=== PATIENT | male | born 1995 | race African-American/Black ===

== ENCOUNTER 2022-09-25 13:09 | Emergency (ER) | payer SELFPAY ==
[~2022-09-25] VITALS: Ht 182.9 cm; Wt 100.0 kg
[2022-09-25 13:57] VITALS: BP 134/77
[2022-09-25 14:49] LABS: BG BASE EXCESS 2.5 mmol/L (-2.0-2.0); BG CARBOXYHEMOGLOBIN 1.1 % (0.5-1.5); BG DEOXYHEMOGLOBIN 4.1 % (0.0-5.0); BG FRACTION INSPIRED OXYGEN 21; BG HCO3 ACT 26.9 mmol/L (22.0-26.0); BG METHEMOGLOBIN 0.3 % (0.0-1.5); BG OXYGEN SATURATION 95.8 % (92.0-98.5); BG OXYHEMOGLOBIN 94.5 % (94.0-97.0); BG PCO2 41.1 mmHg (35.0-45.0); BG PH 7.434 (7.350-7.450); BG PO2 75.1 mmHg (75.0-100.0); BG SAMPLE SITE LEFT RADIAL; BG TOTAL HEMOGLOBIN 15.3 g/dL (12.0-18.0); BG VENT MODE ROOM AIR
[2022-09-25 15:33] LABS: BASOPHILS % 0.5 % (0.0-2.0); EOSINOPHILS % 1.8 % (0.0-5.0); HEMATOCRIT. 46.1 % (42.0-52.0); HEMOGLOBIN. 14.5 g/dL (14.0-18.0); LYMPHOCYTES % 40.5 % (20.0-50.0); MEAN CORPUSCULAR VOLUME 69.6 fL (80.0-94.0); MONOCYTES % 6.5 % (2.0-8.0); NEUTROPHILS % 50.7 % (40.0-76.0); PLATELET 268 x1000/uL (130-400); RED BLOOD CELL COUNT 6.61 mill/uL (4.7-6.1); RED CELL DISTRIBUTION WIDTH 14.8 % (11.6-14.6)
[2022-09-25 15:35] LABS: CHLORIDE 91 mEq/L (98-107)
[2022-09-25 15:41] LABS: BETA HYDROXYBUTYRATE 1.1 mMol/L (0.0-0.3)
[2022-09-25] MEDS ORDERED: METF-414 MT (17:24)
[2022-09-25] MEDS ORDERED: INSULIN REGULAR (HUMULIN R) 300UNITS/3ML VIAL SUBCUT ONE (17:30)
[2022-09-25] MEDS ORDERED: METFORMIN HCL 500MG TABLET PO ONE (17:30)
[2022-09-25 17:52] LABS: CLARITY URINE CLOUDY (CLEAR); COLOR URINE YELLOW (YELLOW); KETONES URINE 2+ (NEGATIVE); LEUKOCYTE ESTERASE URINE 2+ (NEGATIVE); NITRITE URINE NEGATIVE (NEGATIVE); OCCULT BLOOD URINE 1+ (NEGATIVE); PROTEIN URINE 1+ (NEGATIVE); SPECIFIC GRAVITY URINE 1.044 (1.005-1.030); UROBILINOGEN URINE 0.2 E.U./dL (0.2-1.0)
[2022-09-25 18:08] LABS: PLATELET ESTIMATE NORMAL
== END 2022-09-25 17:57 | disposition home or self-care (01) ==
LOC: ER 13:09
DX: E11.65 Type 2 diabetes mellitus with hyperglycemia (principal); R53.1 Weakness; R42 Dizziness and giddiness
CPT/HCPCS: 36415; 36600; 71045; 80053; 81003; 82010; 82375; 82805; 82962; 85025; 87086; 96372; 99284; J1815

== ENCOUNTER 2025-04-10 21:58 | Emergency (ER) | payer BC ==
[~2025-04-10] VITALS: Ht 180.3 cm; Wt 100.0 kg
[~2025-04-10 21:58] MED LIST: METF-414 MT; METF-416 MT
[2025-04-10 21:59] VITALS: O2SAT 99
[2025-04-10 22:32] VITALS: TEMP 36.9
[2025-04-10] MEDS ORDERED: PENI500T MT (23:48)
[2025-04-10] MEDS ORDERED: IBUP-2029 MT (23:48)
[2025-04-10 23:59] VITALS: BP 148/86; PULSE 91; RESP 18
[2025-04-10] MEDS: KETOROLAC 30MG/ML VIAL IM ONE (23:59)
== END 2025-04-11 | disposition home or self-care (01) ==
LOC: ER 21:58
DX: J02.8 Acute pharyngitis due to other specified organisms (principal); B96.89 Other specified bacterial agents as the cause of diseases classified elsewhere; E11.9 Type 2 diabetes mellitus without complications; Z79.84 Long term (current) use of oral hypoglycemic drugs
CPT/HCPCS: 99283; 96372; J1885

== ENCOUNTER 2025-05-16 19:53 | Emergency (ER) | payer BC ==
[~2025-05-16] VITALS: Ht 180.3 cm; Wt 99.2 kg
[~2025-05-16 19:53] MED LIST changes: +IBUP-2029 MT; +PENI500T MT
[2025-05-16 20:38] VITALS: TEMP 36.8; O2SAT 98
[2025-05-16 21:01] LABS: CLARITY URINE CLEAR (CLEAR); COLOR URINE YELLOW (YELLOW); GLUCOSE URINE NEGATIVE (NEGATIVE); KETONES URINE 1+ (NEGATIVE); LEUKOCYTE ESTERASE URINE NEGATIVE (NEGATIVE); NITRITE URINE NEGATIVE (NEGATIVE); OCCULT BLOOD URINE NEGATIVE (NEGATIVE); PH URINE 5.5 (4.5-8.0); PROTEIN URINE NEGATIVE (NEGATIVE); SPECIFIC GRAVITY URINE 1.036 (1.005-1.030); UROBILINOGEN URINE 0.2 E.U./dL (0.2-1.0)
[2025-05-16 21:15] LABS: BASOPHILS % 0.5 % (0.0-2.0); EOSINOPHILS % 1.3 % (0.0-5.0); HEMATOCRIT. 38.8 % (42.0-52.0); HEMOGLOBIN. 12.4 g/dL (14.0-18.0); LYMPHOCYTES % 47.6 % (20.0-50.0); MEAN PLATELET VOLUME 8.3 fl (7.4-10.4); MONOCYTES % 6.4 % (2.0-8.0); NEUTROPHILS % 44.2 % (40.0-76.0); PLATELET 247 x1000/uL (130-400); RED BLOOD CELL COUNT 5.76 mill/uL (4.7-6.1); RED CELL DISTRIBUTION WIDTH 15.5 % (11.6-14.6)
[2025-05-16 21:16] LABS: ADD RBC MORPHOLOGY YES
[2025-05-16 21:27] LABS: CREATININE 1.1 mg/dL (0.6-1.3); UREA NITROGEN BLOOD 13 mg/dL (9-23)
[2025-05-16 21:31] LABS: PLATELET ESTIMATE NORMAL
[2025-05-16 22:51] VITALS: BP 113/83; PULSE 70; RESP 18; O2SAT 100
== END 2025-05-16 22:53 | disposition home or self-care (01) ==
LOC: ER 19:53
DX: E11.649 Type 2 diabetes mellitus with hypoglycemia without coma (principal); R53.1 Weakness; Z79.84 Long term (current) use of oral hypoglycemic drugs
CPT/HCPCS: 36415; 71045; 80048; 81003; 82962; 85025; 99284

== ENCOUNTER 2025-07-21 19:53 | Emergency (ER) | payer BC ==
[~2025-07-21] VITALS: Ht 180.3 cm; Wt 55.0 kg
[~2025-07-21 19:53] MED LIST changes: +IBUP-1455 MT; -IBUP-2029 MT
[2025-07-21 20:38] VITALS: O2SAT 100
[2025-07-21] MEDS: CEFTRIAXONE SODIUM 500MG VIAL IM ONE (20:55)
[2025-07-21] MEDS: DOXYCYCLINE HYCLATE 100MG CAPSULE PO ONE (20:56)
[2025-07-21 21:45] VITALS: BP 140/84; PULSE 98; RESP 16; TEMP 36.9; O2SAT 96
[2025-07-21 22:08] LABS: CLARITY URINE CLEAR (CLEAR); COLOR URINE YELLOW (YELLOW); GLUCOSE URINE 3+ (NEGATIVE); KETONES URINE NEGATIVE (NEGATIVE); LEUKOCYTE ESTERASE URINE NEGATIVE (NEGATIVE); NITRITE URINE NEGATIVE (NEGATIVE); OCCULT BLOOD URINE NEGATIVE (NEGATIVE); PH URINE 6.0 (4.5-8.0); PROTEIN URINE NEGATIVE (NEGATIVE); SPECIFIC GRAVITY URINE 1.032 (1.005-1.030); UROBILINOGEN URINE 1.0 E.U./dL (0.2-1.0)
[2025-07-21 22:11] LABS: RBC URINE NONE SEEN /hpf (0-2); WBC URINE 0-2 /hpf (0-2)
[2025-07-21 22:12] LABS: BACTERIA URINE TRACE; SQUAMOUS EPITHELIAL CELL URINE FEW /lpf (RARE/1+)
[2025-07-24 04:12] LABS: CHLAMYDIA TRACHOMATIS NAA Positive (Negative); NEISSERIA GONORRHOEAE NAA Negative (Negative)
[2025-07-24 04:12] LABS: HSV TYPE 2 SPECIFIC AB IGG Non Reactive (Non Reactive)
== END 2025-07-21 21:51 | disposition home or self-care (01) ==
LOC: ER 19:53
DX: A64 Unspecified sexually transmitted disease (principal); E11.9 Type 2 diabetes mellitus without complications; Z79.84 Long term (current) use of oral hypoglycemic drugs
CPT/HCPCS: 99283; 86592; 86695; 86696; 87491; 87591; 81003; 36415; 96372; J0696

== ENCOUNTER 2025-08-11 22:41 | Emergency (ER) | payer SELFPAY ==
[~2025-08-11] VITALS: Ht 180.3 cm; Wt 105.0 kg
[2025-08-11 22:45] VITALS: TEMP 36.9; O2SAT 97
[2025-08-11 22:46] VITALS: TEMP 98.5
[2025-08-12] MEDS ORDERED: DOXY100C5 MT (00:14)
[2025-08-12] MEDS ORDERED: BENZ100C86 MT (00:14)
[2025-08-12 01:40] VITALS: BP 110/77; PULSE 100; RESP 18; O2SAT 97
== END 2025-08-12 01:43 | disposition home or self-care (01) ==
LOC: ER 22:41
DX: A74.9 Chlamydial infection, unspecified (principal); R05.9 Cough, unspecified; E11.9 Type 2 diabetes mellitus without complications; Z79.899 Other long term (current) drug therapy
CPT/HCPCS: 71045; 99283; Z7610